=== PATIENT | male | born 1990 | race Caucasian/White ===

== ENCOUNTER 2017-10-03 20:07 | Emergency (ER) | payer BC, OTHER ==
[~2017-10-03] VITALS: Ht 182.9 cm; Wt 88.8 kg
[2017-10-03 20:10] VITALS: TEMP 36.7; Ht 182.9 cm; Wt 88.8 kg
[2017-10-03] MEDS ORDERED: SODIUM CHLORIDE 0.9% 1000ML 1,000 ML IV STA (20:26)
[2017-10-03] MEDS ORDERED: SODIUM CHLORIDE 0.9% 1000ML 1,000 ML IV ONE (20:26)
[2017-10-03 20:48] LABS: BASO % 0.3 %; BASO ABS # 0.02 K/uL (0-0.2); EOS ABS # 0.14 K/uL (0-0.5); HEMATOCRIT 41.3 % (42-52); HEMOGLOBIN 14.3 g/dL (14.0-18.0); IG# 0.01 K/uL (0.00-0.02); LYMPH ABS # 2.33 K/uL (1.2-3.4); MEAN CELL VOLUME 93.4 fL (80-100); MEAN CORPUSCULAR HEMOGLOBIN 32.4 pg (25-34); MEAN CORPUSCULAR HGB CONC 34.6 g/dl (32-36); MEAN PLATELET VOLUME 9.6 fL (7.4-10.4); MONO % 9.2 %; MONO ABS # 0.65 K/uL (0.11-0.59); NEUT % 55.4 %; NEUT ABS # 3.92 K/uL (1.4-6.5); PLATELET COUNT 285 K/uL (130-400); RED CELL DISTRIBUTION WIDTH CV 12.3 % (11.5-14.5); RED CELL DISTRIBUTION WIDTH SD 41.9 fL (36.4-46.3); WHITE BLOOD COUNT 7.07 K/uL (4.8-10.8)
[2017-10-03 21:07] LABS: ALBUMIN 4.5 gm/dl (3.4-5.0); CALCIUM 9.7 mg/dl (8.5-10.1); CREATININE 0.89 mg/dl (0.60-1.40); POTASSIUM 3.7 mmol/L (3.5-5.1)
--- NOTE | 2017-10-03 21:07 | DIAGNOSTIC IMAGING REPORT ---
CT SCAN OF THE ABDOMEN AND PELVIS WITHOUT CONTRAST CLINICAL HISTORY: Left flank pain COMPARISON STUDY: No previous studies for comparison. TECHNIQUE: CT scan of the abdomen and pelvis was performed from the lung bases to the proximal femurs. Images are reviewed in the axial, sagittal, and coronal planes. IV contrast was not administered for this examination. A dose lowering technique was utilized adhering to the principles of ALARA. CT DOSE: 750.20 mGy.cm FINDINGS: Lower chest: The heart is normal in size and configuration, without pericardial effusion. The lung bases and pleural spaces are clear. Liver: The unenhanced liver is normal in size, contour, and attenuation. There is no intrahepatic biliary ductal dilatation. Gallbladder: Unremarkable. Spleen: Normal in size and attenuation. Pancreas: Unremarkable. Adrenal glands: Unremarkable. Kidneys: The unenhanced kidneys are normal in size without hydronephrosis. There is no contour deforming renal mass lesion. No renal calculi are identified. No ureteral calculi are visualized.. Bowel: There are no transition zones indicate bowel obstruction. There is no acute diverticulitis. There is no evidence of acute appendicitis. Peritoneum: There is no intraperitoneal free air or abdominal ascites. Vasculature: The abdominal aorta is normal in course and caliber. Adenopathy: None. Pelvic viscera: The bladder, and pelvic viscera are unremarkable. Skeletal structures: There is a left L5 spondylolysis. No lytic lesions are visualized. IMPRESSION: 1. No acute intra-abdominal or pelvic findings 2. No renal, ureteral, or bladder calculi identified 3. No evidence of bowel obstruction. No evidence of free air Electronically signed by: Keyur Kuhn M.D. 10/03/2017 9:06 PM Dictated Date/Time: 10/03/2017 9:03 PM
[2017-10-03 21:10] LABS: TOTAL PROTEIN 7.3 gm/dl (6.4-8.2)
[2017-10-03 23:38] VITALS: BP 127/78; PULSE 60; O2SAT 98
--- NOTE | 2017-10-04 01:44 | EMERGENCY ROOM VISIT NOTE ---
History Report prepared by Melo: Tarik Marino Under the Supervision of: Dr. Walter Starkey M.D. First contact with patient: 20:13 Chief Complaint: KIDNEY STONE Stated Complaint: KIDNEY STONES History of Present Illness The patient is a 27 year old male who presents to the Emergency Room with complaints of left sided kidney pain that the patient states he first started to notice when he was 14 years old, 13 years ago. The patient sates that he was an alcoholic since was 14 years old and has "blacked out" hundreds of times. The patient states that in the past 1-2 weeks he has completely stopped drinking alcohol, smoking cigarettes, and abusing caffeine. The patient notes that he has not been to see a physician in years and has a family history of kidney stones. The patient is currently experiencing discharge from his penis, pain with urination, and blood in his urine. The patient was just seen at Urgent Care where he was told that he had blood in his urine. The patient does believe that he has passed a couple of kidney stones over the past couple of days. Source of History: patient Onset: Several years Position: back (Left flank pain) Timing: other (Chronic) Associated Symptoms: + urinary symptoms Review of Systems See HPI for pertinent positives & negatives. A total of 10 systems reviewed and were otherwise negative. Past Medical & Surgical Patient denies past medical/surgical histories Family History FHx: cancer Kidney stones Social History Smoking Status: Former Smoker Alcohol Use: other (Former alcoholic, notes he has not had a drink in several days) Drug Use: none Marital Status: single Occupation Status: [employer] student Current/Historical Medications No Active Prescriptions or Reported Meds Allergies Coded Allergies: No Known Allergies (Unverified , 12/24/13) Physical Exam Vital Signs Date Time Temp Pulse Resp B/P (MAP) Pulse Ox O2 Delivery O2 Flow Rate FiO2 10/03/17 23:38 60 18 127/78 98 10/03/17 22:10 64 18 141/79 97 Room Air 10/03/17 20:10 36.7 69 18 144/86 97 Room Air Physical Exam General: Non-ill appearing young male in no acute distress. HEENT: Normal cephalic atraumatic. Pupils are equal round and reactive to light. Extraocular movements are intact. Oropharynx is pink with moist mucous membranes. No swelling of the mouth lips or tongue. Neck: Supple with a midline trachea. No meningeal signs or stiffness, no JVD or bruits. No Stridor. Chest: Clear to auscultation bilaterally. No wheezes or rhonchi. No increased work of breathing. Heart: regular rate and rhythm. Abdomen: Soft nontender, nondistended without rebound guarding or rigidity. Extremities: No cyanosis clubbing or edema. No calf tenderness or assymetry Spine/Back. Non tender to palpation. No CVA tenderness Skin: Good turgor without rashes. Neurologic exam: Cranial nerves two through 12 are intact. Motor and sensation are intact and symmetrical throughout. Medical Decision & Procedures ER Provider Diagnostic Interpretation: Radiology results as stated below per my review and radiologist interpretation: CT SCAN OF THE ABDOMEN AND PELVIS WITHOUT CONTRAST CLINICAL HISTORY: Left flank pain COMPARISON STUDY: No previous studies for comparison. TECHNIQUE: CT scan of the abdomen and pelvis was performed from the lung bases to the proximal femurs. Images are reviewed in the axial, sagittal, and coronal planes. IV contrast was not administered for this examination. A dose lowering technique was utilized adhering to the principles of ALARA. CT DOSE: 750.20 mGy.cm FINDINGS: Lower chest: The heart is normal in size and configuration, without pericardial effusion. The lung bases and pleural spaces are clear. Liver: The unenhanced liver is normal in size, contour, and attenuation. There is no intrahepatic biliary ductal dilatation. Gallbladder: Unremarkable. Spleen: Normal in size and attenuation. Pancreas: Unremarkable. Adrenal glands: Unremarkable. Kidneys: The unenhanced kidneys are normal in size without hydronephrosis. There is no contour deforming renal mass lesion. No renal calculi are identified. No ureteral calculi are visualized.. Bowel: There are no transition zones indicate bowel obstruction. There is no acute diverticulitis. There is no evidence of acute appendicitis. Peritoneum: There is no intraperitoneal free air or abdominal ascites. Vasculature: The abdominal aorta is normal in course and caliber. Adenopathy: None. Pelvic viscera: The bladder, and pelvic viscera are unremarkable. Skeletal structures: There is a left L5 spondylolysis. No lytic lesions are visualized. IMPRESSION: 1. No acute intra-abdominal or pelvic findings 2. No renal, ureteral, or bladder calculi identified 3. No evidence of bowel obstruction. No evidence of free air Electronically signed by: Keyur Kuhn M.D. 10/03/2017 9:06 PM Dictated Date/Time: 10/03/2017 9:03 PM Laboratory Results 10/03/17 20:37 Red Blood Count 4.42, Mean Corpuscular Volume 93.4, Mean Corpuscular Hemoglobin 32.4, Mean Corpuscular Hemoglobin Concent 34.6, Mean Platelet Volume 9.6, Neutrophils (%) (Auto) 55.4, Lymphocytes (%) (Auto) 33.0, Monocytes (%) (Auto) 9.2, Eosinophils (%) (Auto) 2.0, Basophils (%) (Auto) 0.3, Neutrophils # (Auto) 3.92, Lymphocytes # (Auto) 2.33, Monocytes # (Auto) 0.65, Eosinophils # (Auto) 0.14, Basophils # (Auto) 0.02 10/03/17 20:37 Test 10/03/17 20:37 10/03/17 23:11 White Blood Count 7.07 K/uL (4.8-10.8) Red Blood Count 4.42 M/uL (4.7-6.1) Hemoglobin 14.3 g/dL (14.0-18.0) Hematocrit 41.3 % (42-52) Mean Corpuscular Volume 93.4 fL (80-100) Mean Corpuscular Hemoglobin 32.4 pg (25-34) Mean Corpuscular Hemoglobin Concent 34.6 g/dl (32-36) Platelet Count 285 K/uL (130-400) Mean Platelet Volume 9.6 fL (7.4-10.4) Neutrophils (%) (Auto) 55.4 % Lymphocytes (%) (Auto) 33.0 % Monocytes (%) (Auto) 9.2 % Eosinophils (%) (Auto) 2.0 % Basophils (%) (Auto) 0.3 % Neutrophils # (Auto) 3.92 K/uL (1.4-6.5) Lymphocytes # (Auto) 2.33 K/uL (1.2-3.4) Monocytes # (Auto) 0.65 K/uL (0.11-0.59) Eosinophils # (Auto) 0.14 K/uL (0-0.5) Basophils # (Auto) 0.02 K/uL (0-0.2) RDW Standard Deviation 41.9 fL (36.4-46.3) RDW Coefficient of Variation 12.3 % (11.5-14.5) Immature Granulocyte % (Auto) 0.1 % Immature Granulocyte # (Auto) 0.01 K/uL (0.00-0.02) Anion Gap 9.0 mmol/L (3-11) Est Creatinine Clear Calc Drug Dose 136.9 ml/min Estimated GFR () 135.8 Estimated GFR (Non- 117.2 BUN/Creatinine Ratio 9.5 (10-20) Calcium Level 9.7 mg/dl (8.5-10.1) Total Bilirubin 1.9 mg/dl (0.2-1) Direct Bilirubin 0.3 mg/dl (0-0.2) Aspartate Amino Transf (AST/SGOT) 12 U/L (15-37) Alanine Aminotransferase (ALT/SGPT) 12 U/L (12-78) Alkaline Phosphatase 69 U/L (45-117) Total Protein 7.3 gm/dl (6.4-8.2) Albumin 4.5 gm/dl (3.4-5.0) Lipase 181 U/L (73-393) Urine Color DK YELLOW Urine Appearance CLEAR (CLEAR) Urine pH 5.0 (4.5-7.5) Urine Specific [place] 1.039 (1.000-1.030) Urine Protein NEG (NEG) Urine Glucose (UA) NEG (NEG) Urine Ketones 2+ (NEG) Urine Occult Blood NEG (NEG) Urine Nitrite NEG (NEG) Urine Bilirubin NEG (NEG) Urine Urobilinogen NEG (NEG) Urine Leukocyte Esterase NEG (NEG) Laboratory studies as stated above per my review. Medications Administered Medications (Trade) Dose Ordered Sig/Gareth Route Start Time Stop Time Status Last Admin Dose Admin Sodium Chloride 1,000 ml @ 999 mls/hr Q1H1M STAT IV 10/03/17 20:26 10/03/17 21:26 DC 10/03/17 20:40 999 MLS/HR ED Course 2015: Past medical records reviewed. The patient was evaluated in room C6, and a complete history and physical examination were performed. 2025: Ordered Sodium Chloride 1000 mL @ 200 mL/hr IV, Sodium Chloride 1000 mL @ 999 mL/hr IV. 2319: The patients urinalysis did not show any blood or signs of infection. The patient will be discharged home. Medical Decision Differential diagnosis includes; kidney stone, UTI, electrolyte or metabolic abnormality, toxicologic process. This patient comes in as described above. He was placed in room C6. He is here for ongoing left flank pain is been going on for quite some time. he has multiple health concerns. he has been detoxing from alcohol caffeine among other substances. He denies drug use. He has been off alcohol for quite some time and does not appear to be in withdrawal. He apparently had blood in his urine at the urgent care centers they sent him here to evaluate for kidney stones. He looks well on exam. His abdomen is benign. IV access established and blood work was obtained. he was hydrated with IV normal saline. He has nothing to suggest infection. He has no acute electrolyte or metabolic abnormalities. His urinalysis does not suggest a UTI with a backup culture pending on the dip in the ER and he had no blood here. I did a CAT scan of his abdomen and there is no acute intraabdominal abnormalities. He has no kidney stones or obstructive uropathy. His total bilirubin is mildly elevated at 1.9 but AST and ALT are normal. I encouraged her to follow-up with his regular doctor and get established with somebody locally at this point after general for any evidence of stone or kidney infection or other pathology acutely to explain his symptoms. He should drink plenty of fluids and return if any new problems or concerns. Medication Reconcilliation Current Medication List: was personally reviewed by me Blood Pressure Screening Patient's blood pressure: Elevated blood pressure Blood pressure disposition: Elevated BP felt to be situational Impression Primary Impression: Left flank pain Scribe Attestation The scribe's documentation has been prepared under my direction and personally reviewed by me in its entirety. I confirm that the note above accurately reflects all work, treatment, procedures, and medical decision making performed by me. Departure Information Dispostion Home / Self-Care Prescriptions No Active Prescriptions or Reported Meds Referrals No Doctor, Assigned (PCP) Forms HOME CARE DOCUMENTATION FORM, IMPORTANT VISIT INFORMATION Patient Instructions My [facility] Additional Instructions Rest Drink plenty of fluids Return if: Worsening of symptoms, fever chills, any new problems or concerns Establish with a primary care physician follow-up this week for recheck
== END 2017-10-03 23:38 | disposition home or self-care (01) ==
LOC: C.EDB 20:08 → C.EDC 23:38
DX: R10.32 Left lower quadrant pain (principal); Z84.1 Family history of disorders of kidney and ureter; Z80.9 Family history of malignant neoplasm, unspecified; Z87.891 Personal history of nicotine dependence; F10.20 Alcohol dependence, uncomplicated

== ENCOUNTER 2017-10-22 19:36 | Emergency (ER) | payer OTHER ==
[~2017-10-22] VITALS: Ht 180.3 cm; Wt 86.1 kg
[2017-10-22 19:42] VITALS: TEMP 36.7; Ht 180.3 cm; Wt 86.1 kg
[2017-10-22] MEDS ORDERED: ACETAMINOPHEN 500 MG TAB PO STA (20:17)
[2017-10-22] MEDS ORDERED: IBUPROFEN 600 MG TAB PO STA (20:17)
--- NOTE | 2017-10-22 20:29 | DIAGNOSTIC IMAGING REPORT ---
LEFT HAND 3 VIEWS CLINICAL HISTORY: Left hand injury. FINDINGS: 3 views of the left hand are obtained. No prior studies are available for comparison at the time of dictation. The skeletal structures are well mineralized. No fracture is seen. The joint spaces of the hand are well-maintained. The overlying soft tissues are within normal limits. IMPRESSION: No acute bony abnormality is identified in the left hand. Electronically signed by: Todd Wheat M.D. 10/22/2017 8:28 PM Dictated Date/Time: 10/22/2017 8:27 PM
[2017-10-22 21:00] VITALS: BP 147/79; PULSE 86; O2SAT 97
--- NOTE | 2017-10-23 13:27 | EMERGENCY ROOM VISIT NOTE ---
History First contact with patient: 19:48 Chief Complaint: HAND PAIN/INJURY Stated Complaint: LEFT KNUCKLE PAIN History of Present Illness The patient is a 27 year old male who presents to the Emergency Room with complaints of left hand pain for the past month that is acutely exacerbated. The patient states that he accidentally struck his hand off a wall about 1 month ago and is having pain along the posterior left third and fourth MCP joints. The patient did not follow-up with his primary care physician or orthopedics regarding this injury, but he states it has been intermittently painful ever since. The patient reports that today he was protesting on campus at [employer] when "out of nowhere 6 police officers tackled and handcuffed me". Evidently during this reported episode the patient suffered a second injury to his left hand. Patient reports this whole episode occurred less than 1 hour ago and "it's going to make me famous". The patient does not report head, neck, shoulder, back, chest, or other injuries from this fall. The patient rates his current pain an 8/10 and he is confident it is broken. He has not taken anything [id number] for pain control "because I don't have any money". Certain movements evidently worsened the pain. He has not had significant previous injury to this hand. Review of Systems More than 10 systems were reviewed and otherwise negative with the exception of history of present illness. Past Medical/Surgical History Alcoholism Family History FHx: cancer Kidney stones Social History Smoking Status: Current Some Day Smoker Alcohol Use: heavy, other Drug Use: none Marital Status: single Occupation Status: [employer] student Current/Historical Medications No Active Prescriptions or Reported Meds Physical Exam Vital Signs Date Time Temp Pulse Resp B/P (MAP) Pulse Ox O2 Delivery O2 Flow Rate FiO2 10/22/17 21:00 86 20 147/79 97 Room Air 10/22/17 19:42 36.7 80 18 153/83 98 Room Air Physical Exam VITALS: Vitals are noted on the nurse's note and reviewed by myself. Vital signs stable. GENERAL: Well-developed, well-nourished, white male who appears comfortable and laying flat in his emergency department bed. He is cooperative with examination. HEAD: Normocephalic atraumatic. EARS: External ear normal. External auditory canals clear, tympanic membranes pearly muller without erythema or effusion bilaterally. EYES: Pupils equal round and reactive to light and accommodation. Conjunctivae without injection, sclerae without icterus. Extraocular movements intact. NOSE: Patent, turbinates without inflammation or discharge. MOUTH: Mucous membranes moist. Tonsils are not enlarged. Pharynx without erythema, blood, or exudate. Uvula midline. Airway patent. NECK: Supple without nuchal rigidity. No lymphadenopathy. No thyromegaly. Cervical spine is nontender. HEART: Regular rate and rhythm without murmurs gallops or rubs. LUNGS: Clear to auscultation bilaterally without wheezes, rales or rhonchi. No retractions or accessory muscle use. ABDOMEN: Positive normal bowel sounds x 4. Soft, nontender, without masses or organomegaly. No guarding or rebound tenderness. MUSCULOSKELETAL: No muscle atrophy, erythema, or edema noted. Full sensation noted into the left hand without obvious ecchymosis, deformity, abrasion, or laceration. Concept Artist strength is 5/5 bilateral. No other muscular skeletal injuries noted. Medical Decision & Procedures ER Provider Diagnostic Interpretation: LEFT HAND 3 VIEWS CLINICAL HISTORY: Left hand injury. FINDINGS: 3 views of the left hand are obtained. No prior studies are available for comparison at the time of dictation. The skeletal structures are well mineralized. No fracture is seen. The joint spaces of the hand are well-maintained. The overlying soft tissues are within normal limits. IMPRESSION: No acute bony abnormality is identified in the left hand. Medications Administered Medications (Trade) Dose Ordered Sig/Gareth Route Start Time Stop Time Status Last Admin Dose Admin Acetaminophen (Tylenol Tab) 1,000 mg NOW STAT PO 10/22/17 20:17 10/22/17 20:18 DC 10/22/17 20:29 1,000 MG Ibuprofen (Motrin Tab) 600 mg NOW STAT PO 10/22/17 20:17 10/22/17 20:18 DC 10/22/17 20:29 600 MG ED Course Physical exam and history were performed. Nursing notes, EMR, and Medication List were personally reviewed. Patient appears to have injured his left hand after being reportedly taken to the ground by police less than 1 hour ago. The patient does not have outward signs of injury, but is complaining of left hand pain. He was given ibuprofen and Tylenol here in the department. X-rays were performed and reviewed by myself and radiology as showing no fracture or dislocation. Patient continues to be in no acute distress. When further questioned regarding the episode that caused his injuries today, he had difficulty explaining it in full. Of note, [place] police were in the emergency department for an unrelated event, and were not able to corroborate any recent episodes that would be consistent with the reported history. I explained to the patient that he will need to follow with orthopedics as I suspect his hand pain is likely chronic from an injury several weeks ago. The patient began requesting pain medication as well as food, again indicating that he does not have any money to pay for these things himself. Overall the patient encounter was concerning, and I did offer mental health services and case management intervention. He does not appear to be suicidal or homicidal. The patient declined these services and requested being discharged, which appears reasonable. He is to use [id number] analgesics and follow-up with orthopedics for ongoing care. The chart was completed utilizing [employer] Speech Voice Recognition Software. Grammatical errors, random word insertions, pronoun errors, and incomplete sentences are an occasional consequence of this system due to software limitations, ambient noise, and hardware issues. Any formal questions or concerns about the content, text, or information contained within the body of this dictation should be directly addressed to the provider for clarification. . Medical Decision Differential diagnosis includes, but is not limited to: Sprain, strain, fracture , dislocation, subluxation, contusion, mental health disease, substance abuse, and others Impression Primary Impression: Left hand pain Departure Information Dispostion Home / Self-Care Condition GOOD Prescriptions No Active Prescriptions or Reported Meds Referrals Everton Tovar D.O. Forms HOME CARE DOCUMENTATION FORM, IMPORTANT VISIT INFORMATION Patient Instructions My [facility] Additional Instructions You were seen and evaluated today on an emergency basis only. This is not a substitute for, or an effort to provide, complete comprehensive medical care. It is not possible to recognize and treat all injuries or illnesses in a single emergency department visit. For this reason it is recommended that you followup with orthopedics, Dr. Tovar's office, for ongoing care and evaluation. For baseline pain relief you may alternate ibuprofen and acetaminophen every 4 hours for pain control. Take 600 mg ibuprofen (Advil) and then 4 hours later take 1000 mg acetaminophen (Tylenol). Do not take more than 3000 mg acetaminophen in a single day. You are welcome to return to the emergency department anytime with new, worsening, or concerning symptoms.
== END 2017-10-22 21:00 | disposition home or self-care (01) ==
LOC: C.EDB 19:40 → C.EDD 21:00
DX: M79.642 Pain in left hand (principal); W22.8XXA Striking against or struck by other objects, initial encounter; Z72.0 Tobacco use

== ENCOUNTER 2017-10-27 20:40 | Emergency (ER) | payer OTHER ==
[~2017-10-27] VITALS: Ht 182.9 cm; Wt 86.8 kg
[2017-10-27 20:42] VITALS: BP 133/76; TEMP 36.9; Ht 182.9 cm; Wt 86.8 kg
[2017-10-27] MEDS ORDERED: LIDOCAINE/EPINEPH/TETRACAINE 1 EA SYR EXT STA (21:36)
--- NOTE | 2017-10-27 22:21 | DIAGNOSTIC IMAGING REPORT ---
RIGHT HAND 3 VIEWS CLINICAL HISTORY: Right thumb pain an injury. FINDINGS: 3 views of the right hand are obtained. No prior studies are available for comparison at the time of dictation. The skeletal structures are well mineralized. No fracture is seen. The joint spaces of the hand are well-maintained. The overlying soft tissues are within normal limits. IMPRESSION: No acute bony abnormality is seen in the right hand. Electronically signed by: Todd Wheat M.D. 10/27/2017 10:20 PM Dictated Date/Time: 10/27/2017 10:19 PM
--- NOTE | 2017-10-27 22:49 | DIAGNOSTIC IMAGING REPORT ---
CT SCAN OF THE BRAIN WITHOUT IV CONTRAST CLINICAL HISTORY: Head injury/laceration. COMPARISON STUDY: No priors. TECHNIQUE: Unenhanced axial CT scan of the brain is performed from the vertex to the skull base. A dose lowering technique was utilized adhering to the principles of ALARA. CT DOSE: 729.78 mGycm FINDINGS: Brain parenchyma: The brain parenchyma is normal in appearance. There is no hemorrhage, mass effect, or evidence of acute territorial ischemia by CT criteria. Sandra-white matter is preserved. No extra-axial fluid collection is seen. Ventricles, sulci, cisterns: Normal in configuration. Intracranial vasculature: The visualized intracranial vasculature at the skull base is normal in appearance. Calvarium: There is no depressed femoral fracture Sinuses and mastoids: The visualized paranasal sinuses are clear. The mastoid air cells are well pneumatized. Orbits: The bony orbits are grossly intact. IMPRESSION: No acute intracranial abnormality. Electronically signed by: Todd Wheat M.D. 10/27/2017 10:48 PM Dictated Date/Time: 10/27/2017 10:46 PM
[2017-10-27] MEDS ORDERED: NORCO 5/325MG HOME PACK PO ONE (23:00)
[2017-10-27 23:13] VITALS: PULSE 92; O2SAT 99
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
== END 2017-10-27 23:14 | disposition home or self-care (01) ==
LOC: C.EDB 20:41 → C.EDD 23:14
DX: S01.81XA Laceration without foreign body of other part of head, initial encounter (principal); M79.641 Pain in right hand; S80.211A Abrasion, right knee, initial encounter; S80.812A Abrasion, left lower leg, initial encounter; S20.419A Abrasion of unspecified back wall of thorax, initial encounter; V18.4XXA Pedal cycle driver injured in noncollision transport accident in traffic accident, initial encounter; Y92.480 Sidewalk as the place of occurrence of the external cause

== ENCOUNTER 2017-11-03 04:29 | Emergency (ER) | payer OTHER ==
[~2017-11-03] VITALS: Ht 182.9 cm; Wt 90.6 kg
[2017-11-03 04:45] VITALS: TEMP 36.3; Ht 182.9 cm; Wt 90.6 kg
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
[2017-11-03 05:29] LABS: CREATININE 0.91 mg/dl (0.60-1.40)
[2017-11-03 05:42] LABS: CALCIUM 8.9 mg/dl (8.5-10.1)
[2017-11-03] MEDS ORDERED: LORAZEPAM 1 MG TAB SL STA (05:52)
[2017-11-03] MEDS ORDERED: ATIVAN 1MG HOMEPACK PO STA (11:33)
--- NOTE | 2017-11-03 11:33 | EMERGENCY ROOM VISIT NOTE ---
ED Visit Note This is a 27-year-old male signed out to me change of shift. History and physical verified by me. Upon sobering up the patient is eating a meal. He states he has no intent to harm or kill himself. He explains that his mother is bilingual and Hungarian language and that is why he was speaking Hungarian last night. He does not appear to be any threat to himself. He is asking for short supply of Ativan. I feel that this is reasonable stressed he needs to follow- up with his primary care physician. I also asked if he would like me to discuss his visit with his parents which the patient declined.
[2017-11-03 12:06] VITALS: BP 131/84; PULSE 101; O2SAT 100
== END 2017-11-03 12:09 | disposition home or self-care (01) ==
LOC: EDBD 04:29 → C.EDA 04:30
DX: F10.929 Alcohol use, unspecified with intoxication, unspecified (principal); Y90.7 Blood alcohol level of 200-239 mg/100 ml; Z80.9 Family history of malignant neoplasm, unspecified; Z84.1 Family history of disorders of kidney and ureter; S01.111D Laceration without foreign body of right eyelid and periocular area, subsequent encounter; X58.XXXD Exposure to other specified factors, subsequent encounter; S60.419A Abrasion of unspecified finger, initial encounter; S60.511D Abrasion of right hand, subsequent encounter